=== PATIENT | female | born 1930 | race Caucasian/White ===

== ENCOUNTER 2017-09-29 09:18 | Outpatient (CLI) | payer MEDICARE, OTHER ==
[~2017-09-29 09:18] MED LIST: Sodium Chloride 0.9% 15 ML NEB ONE
--- NOTE | 2017-09-29 11:14 | HP ---
DATE OF SERVICE: 09/29/2017 HISTORY OF PRESENT ILLNESS: Ms. 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 The patient states that she has undergone venous ablation x2 on the right and once on the left. Presently, the p atient is receiving dressing changes of Silvadene, Telfa, Kerlix, and Moises bandages. The patient stat es that arrangements have also been made for her to receive a pneumatic pump for in-home lymphedema t herapy. The patient states that she was receiving physical therapy for sciatica for a total of 7 wee ks. She states that when her course of physical therapy was almost complete, she noted the developme nt of swelling of her right and left lower extremities. As stated above, the patient is to receive a pneumatic pump for in-home lymphedema therapy. PAST MEDICAL HISTORY: Arthritis. PAST SURGICAL HISTORY: 1. Left total shoulder arthroplasty. 2. Left knee surgery. 3. Hysterectomy. 4. 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 MEDICATIONS: 1. Aspirin 81 mg. 2. Iron. 3. Vitamin D3. 4. Simvastatin. 5. Prozac. 6. Ativan. 7. Ambien. ALLERGIES: No known diagnosed allergies. SOCIAL HISTORY: Negative for tobacco or ETOH use. FAMILY HISTORY: Significant for diabetes mellitus. The patient states that her mother was diagnosed with diabetes mellitus. Family history is negative for coronary artery disease. PHYSICAL EXAMINATION: VITAL SIGNS: Temperature 97.5, pulse 115, respirations 22, blood pressure 152/91. GENERAL: An 87-year-old female sitting on wheelchair in examination room in no acute distress. HEENT: Normocephalic, atraumatic. NECK: No nuchal rigidity. CHEST: Clear to auscultation. CARDIAC: Regular rate and rhythm. ABDOMEN: Soft. EXTREMITIES: Multiple small superficial venous ulcerations in a diffuse distribution are present ove r the right and left lower legs. No purulent drainage is associated with any of the wounds. Only se shauna drainage is associated with the ulcers on exam today. No cellulitis of the right or left lower legs is appreciated. Erythema of the right and left lower legs is present and appears to be secondar y to stasis changes as opposed to an infectious process. No maceration of the skin of the right or l eft lower leg is present. A dorsalis pedis pulse is palpable on the right and on the left. Edema of the right and left lower extremities is present on exam today. Numerous varicosities are also prese nt over the right and left lower extremities. ASSESSMENT AND PLAN: 1. Varicose veins with ulcers and inflammation. Arrangements will be made for dressing changes of X eroform gauze, ABDs, Webril, and the 3M Coban 2 layer compression system two times per week after linnea ansing and irrigation with the assistance of Home Health. No antibiotics will be prescribed today ba sed upon the appearance of the wounds. I will see Ms. Hassan again in 3 weeks. 2. Arthritis.
== END 2017-09-29 09:19 | disposition home or self-care (01) ==
LOC: WCC 09:18
PROVIDERS: ATTEND Family Medicine
DX: I83.218 Varicose veins of right lower extremity with both ulcer of other part of lower extremity and inflammation (principal); I83.228 Varicose veins of left lower extremity with both ulcer of other part of lower extremity and inflammation; L97.819 Non-pressure chronic ulcer of other part of right lower leg with unspecified severity; L97.829 Non-pressure chronic ulcer of other part of left lower leg with unspecified severity; M19.90 Unspecified osteoarthritis, unspecified site; Z90.710 Acquired absence of both cervix and uterus; Z98.890 Other specified postprocedural states; Z96.612 Presence of left artificial shoulder joint; Z79.899 Other long term (current) drug therapy
CPT/HCPCS: 29581; 97139; G0463; 99203; A4218